=== PATIENT | male | born 1955 | race Caucasian/White ===

== ENCOUNTER 2019-01-29 08:57 | Emergency (ER) | payer OTHER ==
--- OUTSIDE RECORDS SUMMARY | 2019-01-29 08:59 | XMS REPORT ---
:1955 [facility] Address [address] [place] [address] Dr. Saba [address] [place] [id number] Care Team Providers Name Role Phone Unavailable Unavailable Unavailable Problems This patient has no known problems. Allergies, Adverse Reactions, Alerts This patient has no known allergies or adverse reactions. Medications This patient has no known medications.
[2019-01-29 09:45] LABS: Absolute Lymphocytes (CBC) 1.5 K/uL (0.7-4.9); Basophils % 0.4 % (0-1.3); Eosinophils % 2.5 % (0-4.4); Hematocrit 40.3 % (39.6-49.0); Lymphocytes % 24.2 % (15.3-44.8); MPV 8.7 fL (7.6-11.3); Monocytes % 7.6 % (3.3-12.3); RBC Red Blood Cell Count 4.68 M/uL (4.33-5.43)
[2019-01-29] MEDS ORDERED: NA CHLORIDE 0.9% 1,000 ML ONE (09:51)
[2019-01-29 09:53] LABS: Protime INR 0.89
[2019-01-29 10:06] LABS: Albumin 3.8 g/dL (3.4-5.0); Bilirubin Direct 0.2 mg/dL (0-0.2); Bilirubin Total 0.6 mg/dL (0.2-1.0); Potassium 3.8 mmol/L (3.5-5.1); Protein, Total 6.9 g/dL (6.4-8.2)
--- NOTE | 2019-01-29 10:40 | RAD REPORT ---
EXAM DESCRIPTION: CTAbdomen Pelvis W Contrast - 01/29/2019 10:25 am CLINICAL HISTORY: Abdominal pain. HEMATURIA COMPARISON: <Comparisons> TECHNIQUE: Biphasic CT imaging of the abdomen and pelvis was performed with 100 ml non-ionic IV cont rast. All CT scans are performed using dose optimization technique as appropriate and may include automated exposure control or mA/KV adjustment according to patient size. FINDINGS: The lung bases are clear. Mild diffuse fatty liver is present. No focal mass or biliary dilatation seen. The spleen, adrenal gl ands and pancreas are within normal limits. Cyst is present in the cortex of right kidney measuring 2 3 mm. No aggressive renal mass or hydronephrosis. No bowel obstruction, free air, free fluid or abscess. The appendix is normal. No evidence of signi ficant lymphadenopathy. No suspicious bony findings. Poorly defined mass measuring 22 mm is seen along the posterior aspect o f the urinary bladder. Small right inguinal hernia. 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 Direct visualization with cystoscopy is recommended.
[2019-01-29 10:44] LABS: Urine Blood 3+ (NEG); Urine Glucose NEGATIVE (NEG); Urine Protein 3+ (NEG); Urine Specific Gravity 1.015 (1.005-1.030)
[2019-01-29 10:59] LABS: Urine Bacteria NONE SEEN /HPF (NONE SEEN); Urine Culture Reflex Order NOT NEEDED; Urine RBC >50 /HPF (NONE SEEN)
--- NOTE | 2019-01-29 11:33 | EDPHYS ---
Physician Documentation [facility] Name: Nesha Youssef Age: 63 yrs Sex: Male : 1955 Arrival Date: 01/29/2019 Time: 09:00 Bed 19 Private MD: ED Physician Chuck Doe HPI: 01/29 10:31 This 63 yrs old Male presents to ER via Ambulatory with complaints of Urinary pm1 Problem - blood in urine. 10:31 The patient presents with urinary symptoms, hematuria. Onset: The symptoms/episode pm1 began/occurred last night. Modifying factors: The symptoms are alleviated by nothing, the symptoms are aggravated by nothing. Associated signs and symptoms: Pertinent positives: hematuria, Pertinent negatives: abdominal pain, constipation, diarrhea, dysuria, fever, nausea, vomiting. The patient has experienced similar episodes in the past, a few times. Historical: - Allergies: 09:17 NKA; iw - Home Meds: 09:28 lisinopril-hydrochlorothiazide 10-12.5 mg oral tab 1 tab once daily [Active]; Uribel iw 118-10-40.8-36 mg oral cap daily [Active]; finasteride 5 mg oral tab 1 tab once daily [Active]; tamsulosin 0.4 mg oral cp24 1 cap once daily [Active]; omeprazole 40 mg Oral cpDR 1 cap once daily [Active]; Metamucil oral powd [Active]; aspirin 81 mg Oral TbEC 1 tab once daily [Active]; biotin oral oral daily [Active]; nitroglycerin 0.4 mg SL subl 1 tab every 5 minutes [Active]; Plavix 75 mg Oral tab 1 tab once daily [Active]; atorvastatin 40 mg oral tab 1 tab once daily [Active]; metoprolol succinate 25 mg oral Tb24 1 tab once daily [Active]; 11:01 amitriptyline 10 mg Oral tab 1 tab daily [Active]; Elmiron 100 mg Oral cap twice a day tr5 [Active]; finasteride 5 mg Oral tab 1 tab once daily [Active]; lisinopril 10 mg Oral tab 1 tab once daily [Active]; omeprazole 40 mg Oral cpDR 1 cap once daily [Active]; tamsulosin 0.4 mg Oral cp24 1 cap once daily [Active]; Uribel 118-10-40.8-36 mg Oral cap [Active]; - PMHx: 09:28 enlarged prostate; Hypertension; iw - PSHx: 09:28 None; iw - Immunization history:: Adult Immunizations up to date. - Social history:: Smoking status: Patient/guardian denies using tobacco. - Ebola Screening: : Patient negative for fever greater than or equal to 101.5 degrees Fahrenheit, and additional compatible Ebola Virus Disease symptoms Patient denies exposure to infectious person Patient denies travel to an Ebola-affected area in the 21 days before illness onset No symptoms or risks identified at this time. ROS: 10:31 Constitutional: Negative for fever, chills, and weight loss, Eyes: Negative for injury, pm1 pain, redness, and discharge, ENT: Negative for injury, pain, and discharge, Neck: Negative for injury, pain, and swelling, Cardiovascular: Negative for chest pain, palpitations, and edema, Respiratory: Negative for shortness of breath, cough, wheezing, and pleuritic chest pain, Abdomen/GI: Negative for abdominal pain, nausea, vomiting, diarrhea, and constipation, Back: Negative for injury and pain. 10:31 MS/Extremity: Negative for injury and deformity, Skin: Negative for injury, rash, and discoloration, Neuro: Negative for headache, weakness, numbness, tingling, and seizure. 10:31 : Positive for hematuria, Negative for flank pain, burning with urination, penile pain, testicular pain Exam: 10:34 Constitutional: This is a well developed, well nourished patient who is awake, alert, pm1 and in no acute distress. Head/Face: Normocephalic, atraumatic. Eyes: Pupils equal round and reactive to light, extra-ocular motions intact. Lids and lashes normal. Conjunctiva and sclera are non-icteric and not injected. Cornea within normal limits. Periorbital areas with no swelling, redness, or edema. ENT: Nares patent. No nasal discharge, no septal abnormalities noted. Tympanic membranes are normal and external auditory canals are clear. Oropharynx with no redness, swelling, or masses, exudates, or evidence of obstruction, uvula midline. Mucous membranes moist. Neck: Trachea midline, no thyromegaly or masses palpated, and no cervical lymphadenopathy. Supple, full range of motion without nuchal rigidity, or vertebral point tenderness. No Meningismus. Chest/axilla: Normal chest wall appearance and motion. Nontender with no deformity. No lesions are appreciated. Cardiovascular: Regular rate and rhythm with a normal S1 and S2. No gallops, murmurs, or rubs. Normal PMI, no JVD. No pulse deficits. Respiratory: Lungs have equal breath sounds bilaterally, clear to auscultation and percussion. No rales, rhonchi or wheezes noted. No increased work of breathing, no retractions or nasal flaring. Abdomen/GI: Soft, non-tender, with normal bowel sounds. No distension or tympany. No guarding or rebound. No evidence of tenderness throughout. Back: No spinal tenderness. No costovertebral tenderness. Full range of motion. Skin: Warm, dry with normal turgor. Normal color with no rashes, no lesions, and no evidence of cellulitis. MS/ Extremity: Pulses equal, no cyanosis. Neurovascular intact. Full, normal range of motion. 10:34 Neuro: Orientation: is normal, Motor: is normal, moves all fours, Sensation: is normal, no obvious gross deficits. Vital Signs: 09:17 BP 138 / 89; Pulse 86; Resp 16; Pulse Ox 100% on R/A; iw 10:00 BP 128 / 70; Pulse 80; Resp 19; Pulse Ox 98% on R/A; tr5 MDM: 09:15 Patient medically screened. pm1 11:29 Data reviewed: vital signs. Data interpreted: Pulse oximetry: on room air is 98 %. pm1 Interpretation: normal. Counseling: I had a detailed discussion with the patient and/or guardian regarding: the historical points, exam findings, and any diagnostic results supporting the discharge/admit diagnosis, lab results, radiology results, the need for outpatient follow up, for definitive care, a urologist, Needs evaluation with his urologist by next week for bladder mass. 01/29 09:15 Order name: Basic Metabolic Panel; Complete Time: 10:26 pm1 01/29 09:15 Order name: CBC with Diff; Complete Time: 10: pm1 01/29 09:15 Order name: Creatinine for Radiology; Complete Time: 10: pm1 01/29 09:15 Order name: Hepatic Function; Complete Time: 10: pm1 07/13 09:15 Order name: Lipase; Complete Time: 10:26 pm1 01/29 09:15 Order name: PT-INR; Complete Time: 10:26 pm1 01/29 09:15 Order name: IV Saline Lock; Complete Time: 09:33 pm01/29 09:15 Order name: Labs collected and sent; Complete Time: 09:33 pm1 01/29 09:15 Order name: CT Abd/Pelvis - IV Contrast Only; Complete Time: 11:15 pm01/29 09:15 Order name: Urine Dipstick-Ancillary (obtain specimen); Complete Time: 10:49 pm1 01/29 09:15 Order name: Urine Microscopic Only; Complete Time: 11:15 pm01/29 10:37 Order name: Urine Dipstick--Ancillary (enter results); Complete Time: 11:15 eb Administered Medications: 09:40 Drug: NS 0.9% 1000 ml Route: IV; Rate: 1000 ml; Site: right antecubital; tr5 10:49 Follow up: Response: No adverse reaction; IV Status: Completed infusion tr5 Disposition: 15:13 Co-signature as Attending Physician, Chuck Doe MD. rn Disposition: 01/29/19 11:32 Discharged to Home. Impression: Bladder mass, Hematuria. - Condition is Stable. - Discharge Instructions: Hematuria, Adult. - Medication Reconciliation Form, Thank You Letter, Antibiotic Education, Prescription Opioid Use form. - Follow up: Emergency Department; When: As needed; Reason: Worsening of condition. Follow up: Private Physician; When: 2 - 3 days; Reason: Recheck today's complaints, Continuance of care, Re-evaluation by your physician. - Problem is new. - Symptoms have improved. Signatures: Dispatcher [employer] Mary Beth Shni RN RN iw Nieto, Roman, MD MD rn Calderon, Audri, RN RN aa5 Marko Velázquez, CARBIDE TOOL DIE MAKER CARBIDE TOOL DIE MAKER pm1 Cortez Barker RN RN tr5 Corrections: (The following items were deleted from the chart) 12:14 11:33 01/29/2019 11:32 Discharged to Home. Impression: Bladder massHematuria. Condition aa5 is Stable. Forms are Medication Reconciliation Form, Thank You Letter, Antibiotic Education, Prescription Opioid Use. Follow up: Emergency Department; When: As needed; Reason: Worsening of condition. Follow up: Private Physician; When: 2 - 3 days; Reason: Recheck today's complaints, Continuance of care, Re-evaluation by your physician. Problem is new. Symptoms have improved. pm1
--- NOTE | 2019-01-29 11:33 | ER ---
Nurse's Notes [facility] Name: Nesha Youssef Age: 63 yrs Sex: Male : 1955 Arrival Date: 01/29/2019 Time: 09:00 Bed 19 Private MD: Diagnosis: Hematuria;Bladder mass Presentation: 01/29 09:14 Presenting complaint: Patient states: got up to urinate 4-5 times last night, had blood iw with clots in urine, denies urinary retention, denies painful urination, denies n/v, hx of interstitial prostatitis. Transition of care: patient was not received from another setting of care. Onset of symptoms was January 29, 2019. Risk Assessment: Do you want to hurt yourself or someone else? Patient reports no desire to harm self or others. Initial Sepsis Screen: Does the patient meet any 2 criteria? No. Patient's initial sepsis screen is negative. Does the patient have a suspected source of infection? No. Patient's initial sepsis screen is negative. Care prior to arrival: None. 09:14 Method Of Arrival: Ambulatory iw 09:14 Acuity: MARIE 3 iw Historical: - Allergies: 09:17 NKA; iw - Home Meds: 09:28 lisinopril-hydrochlorothiazide 10-12.5 mg oral tab 1 tab once daily [Active]; Uribel iw 118-10-40.8-36 mg oral cap daily [Active]; finasteride 5 mg oral tab 1 tab once daily [Active]; tamsulosin 0.4 mg oral cp24 1 cap once daily [Active]; omeprazole 40 mg Oral cpDR 1 cap once daily [Active]; Metamucil oral powd [Active]; aspirin 81 mg Oral TbEC 1 tab once daily [Active]; biotin oral oral daily [Active]; nitroglycerin 0.4 mg SL subl 1 tab every 5 minutes [Active]; Plavix 75 mg Oral tab 1 tab once daily [Active]; atorvastatin 40 mg oral tab 1 tab once daily [Active]; metoprolol succinate 25 mg oral Tb24 1 tab once daily [Active]; 11:01 amitriptyline 10 mg Oral tab 1 tab daily [Active]; Elmiron 100 mg Oral cap twice a day tr5 [Active]; finasteride 5 mg Oral tab 1 tab once daily [Active]; lisinopril 10 mg Oral tab 1 tab once daily [Active]; omeprazole 40 mg Oral cpDR 1 cap once daily [Active]; tamsulosin 0.4 mg Oral cp24 1 cap once daily [Active]; Uribel 118-10-40.8-36 mg Oral cap [Active]; - PMHx: 09:28 enlarged prostate; Hypertension; iw - PSHx: 09:28 None; iw - Immunization history:: Adult Immunizations up to date. - Social history:: Smoking status: Patient/guardian denies using tobacco. - Ebola Screening: : Patient negative for fever greater than or equal to 101.5 degrees Fahrenheit, and additional compatible Ebola Virus Disease symptoms Patient denies exposure to infectious person Patient denies travel to an Ebola-affected area in the 21 days before illness onset No symptoms or risks identified at this time. Screenin:01 Abuse screen: Denies threats or abuse. Nutritional screening: No deficits noted. tr5 Tuberculosis screening: No symptoms or risk factors identified. Fall Risk No fall in past 12 months (0 pts). No secondary diagnosis (0 pts). IV access (20 points). Ambulatory Aid- None/Bed Rest/Nurse Assist (0 pts). Gait- Normal/Bed Rest/Wheelchair (0 pts) Mental Status- Oriented to own ability (0 pts). Total Damon Fall Scale indicates No Risk (0-24 pts). Assessment: 09:41 General: Appears in no apparent distress. Behavior is calm, cooperative, appropriate tr5 for age. Pain: Denies pain. Neuro: Level of Consciousness is awake, alert, obeys commands, Oriented to person, place, time, Endocrinology Physician are equal bilaterally Moves all extremities. Cardiovascular: Heart tones present Bruits absent Capillary refill < 3 seconds Pulses are all present. Edema is absent. Respiratory: Airway is patent Trachea midline Breath sounds are clear bilaterally. GI: Abdomen is flat, non-distended, Bowel sounds present X 4 quads. Abd is soft and non tender. : Reports Blood and clots in urine. EENT: No signs and/or symptoms were reported regarding the EENT system. Derm: Skin is intact, Skin is dry, Skin is pink, warm \\T\\ dry. Musculoskeletal: Capillary refill < 3 seconds, Range of motion: intact in all extremities. 12:10 Reassessment: Patient is alert, oriented x 3, equal unlabored respirations, skin aa5 warm/dry/pink. Vital Signs: 09:17 BP 138 / 89; Pulse 86; Resp 16; Pulse Ox 100% on R/A; iw 10:00 BP 128 / 70; Pulse 80; Resp 19; Pulse Ox 98% on R/A; tr5 ED Course: 09:00 Patient arrived in ED. as 09:06 Cortez Barker, RN is Primary Nurse. tr5 09:07 Marko Velázquez NP is PHCP. pm1 09:07 Chuck Doe MD is Attending Physician. pm1 09:17 Triage completed. iw 09:19 Radiology exam delayed due to lab results not completed at this time. (BUN/Creatinine). mw3 09:38 Initial lab(s) drawn, by me, sent to lab. Inserted saline lock: 20 gauge in right 5 antecubital area, using aseptic technique. Blood collected. 09:38 Patient has correct armband on for positive identification. Bed in low position. Call [facility] light in reach. Side rails up X 1. Warm blanket given. Pulse ox on. NIBP on. 09:54 PT-INR Sent. mh5 09:54 Basic Metabolic Panel Sent. mh5 09:54 CBC with Diff Sent. mh5 09:54 Creatinine for Radiology Sent. mh5 09:54 Hepatic Function Sent. mh5 09:54 Lipase Sent. mh5 10:[address] tr5 10:25 CT completed. Patient tolerated procedure well. Patient moved back from CT. bq 10:25 CT Abd/Pelvis - IV Contrast Only In Process Unspecified. EDMS 11:02 Arm band placed on left wrist. tr5 12:10 No provider procedures requiring assistance completed. IV discontinued, intact, aa5 bleeding controlled, No redness/swelling at site. Pressure dressing applied. Administered Medications: 09:40 Drug: NS 0.9% 1000 ml Route: IV; Rate: 1000 ml; Site: right antecubital; tr5 10:49 Follow up: Response: No adverse reaction; IV Status: Completed infusion tr5 Outcome: 11:32 Discharge ordered by . pm1 12:10 Discharged to home ambulatory, Pt states "I will see the urologist on Thursday for sure" aa5 12:10 Condition: stable 12:10 Discharge instructions given to patient, Instructed on discharge instructions, follow up and referral plans. Demonstrated understanding of instructions, follow-up care. 12:14 Patient left the ED. aa5 Signatures: Dispatcher [employer] Ora Tay Amelia as Williams, Irene, RN RN iw Jessica Cruz RN RN aa5 Marko Velázquez NP COPPER TAPPER 1 Herlinda Gamboa 5 Jessica Roman mw3 Cortez Barker RN RN tr5
[2019-01-29 12:23] VITALS: BP 128/70; O2SAT 98
== END 2019-01-29 12:14 | disposition home or self-care (01) ==
LOC: ER 08:57
DX: N32.9 Bladder disorder, unspecified (principal); I10 Essential (primary) hypertension; N40.0 Benign prostatic hyperplasia without lower urinary tract symptoms; Z79.01 Long term (current) use of anticoagulants; Z79.82 Long term (current) use of aspirin
CPT/HCPCS: 36415; 74177; 80048; 80076; 81003; 81015; 83690; 85025; 85610; 96360; 99284; J7030; Q9967

== ENCOUNTER 2019-03-29 22:19 | Emergency (ER) | payer OTHER ==
--- OUTSIDE RECORDS SUMMARY | 2019-03-29 22:22 | XMS REPORT | Summary of Care ---
:1955 Author Organization [facility] - Health Address [address] [place] [id number] Care Team Providers Name Role Phone Alesia Rowell Primary Care Provider Encounter Details Date Type Department Care Team Description 03/18/2019 Orders Only [facility] Doctor Unassigned, No [address] [facility] [place] [address] [address] [facility] [place] [phone] Allergies Active Allergy Reactions Severity Noted Date Comments Metoprolol Unknown - See comments 11/12/2018 Feeling floating documented as of this encounter (statuses as of 03/22/2019) Medications Medication Sig Dispensed Refills Start Date End Date Status finasteride 5 mg tablet Take 5 mg by 0 Active mouth at bedtime. tamsulosin (FLOMAX) 0.4 Take 0.4 mg by 0 Active mg 24 hr capsule mouth at bedtime. psyllium-sucrose Take 1 Packet by 0 Active (METAMUCIL, SUGAR,) mouth daily. powder nitroglycerin Place 1 tablet 25 tablet 1 04/21/2017 Active (NITROSTAT) 0.4 mg under the tongue sublingual tablet every 5 (five) minutes as needed for Chest pain. biotin 5,000 mcg TbDL Take by mouth 0 Active daily. aspirin 81 mg EC tablet Take 1 tablet by 90 tablet 4 05/06/2018 Active mouth daily. lisinopril-hydrochlorot Take 1 tablet by 0 Active hiazide 10-12.5 mg per mouth daily. tablet atorvastatin 80 mg Take 1 tablet by 90 tablet 2 12/06/2018 Active tablet mouth at bedtime. clopidogrel 75 mg Take 1 tablet by 90 tablet 1 12/09/2018 Active tablet mouth daily. documented as of this encounter (statuses as of 03/22/2019) Active Problems Problem Noted Date Chest pain 03/11/2017 documented as of this encounter (statuses as of 03/22/2019) Social History Tobacco Use Types Packs/Day Years Used Date Former Smoker Smokeless Tobacco: Never Used Alcohol Use Drinks/Week oz/Week Comments Yes 7 Glasses of wine 4.2 Sex Assigned at Date Recorded Not on file Job Start Date Occupation Industry Not on file Not on file Not on file Travel History Travel Start Travel End No recent travel history available. documented as of this encounter Last Filed Vital Signs Not on filedocumented in this encounter Plan of Treatment Date Type Specialty Care Team Description 07/07/2019 Office Visit Dermatology Charles Vincent MD [address] [facility] [id number] [place] [address] [phone] Health Maintenance Due Date Last Done Comments HEPATITIS C (HCV) SCREEN 1955 DTaP,Tdap,and Td Vaccines (1 - 12/12/1975 Tdap) COLONOSCOPY 2006 Zoster Recombinant Vaccine 2006 (SHINGRIX) (1 of 2) LUNG CANCER SCREEN: Recommended 12/12/2011 for age 55-80 with 30 + pack year history INFLUENZA VACCINE (#1) 2019 PNEUMOCOCCAL 0-64 YEARS COMBINED Aged Out No longer eligible based on SERIES patient's age to complete this topic documented as of this encounter Procedures Procedure Name Priority Date/Time Associated Diagnosis Comments MEDICAL Routine 03/18/2019 12:01 AM CDT RELEASE/CLEARANCE FORMS documented in this encounter Results Not on filedocumented in this encounter Insurance Payer Benefit Plan / Subscriber ID Effective Dates Phone Address Type Group [facility] [id number] 2016-Present HMO HMO documented as of this encounter
--- OUTSIDE RECORDS SUMMARY | 2019-03-29 22:22 | XMS REPORT ---
:1955 Author Organization [facility] Address [address] [place] [address] Care Team Providers Name Role Phone Unavailable Unavailable Unavailable Payers Payer Name Policy Type Policy Number Effective Date Expiration Date Problems This patient has no known problems. Allergies, Adverse Reactions, Alerts Allergy Allergy Status Severity Reaction(s) Onset Inactive Treating Comments Name Type Date Date Clinician No Known DA Active U 2019-02 Allergies -30 00:00:0 0 Medications This patient has no known medications. Results Test Description Test Time Test Comments Text Results Atomic Results Result Comments URINARY 2019-03-28 RUN BLADDER,BIOPSY 18:09:00 DATE: 03/28/19 [facility] - LAB PAGE 1 RUN TIME: 1809 Specimen Inquiry RUN USER: INTERFACE MARTHA ENT: RACHEL ESCALANTE LOC: IRENE U #: [id number] AGE/SX: 63/M ROOM: RE03/25/19REG DR: Anthony Queen MD : 57 BED: DIS: STATUS: [facility] TLOC: SPEC #: [id number] RECD: 03/25/19 STATUS: LUZ RAMAN #: [id number] MACO: 03/25/[address] [facility] [address]: Anthony Queen MD ENTERED: 03/25/19 SP TYPE: URINBLAD OTHR DR: Undefined Provider ORDERED: SURG PATH LVL 4 CODES: G15810 [id number] - UROTHELIUM, NOS NO EVIDENCE OF [id number] L10859 - UROTHELIUM , NOS INFLAMMATION, N [id number] G66426 - UROTHELIUM, NOS GRANULATION TIS U10243 - URINARY BLADDER [id number] [id number] - URINARY BLADDER BIOPSY, NOS [place]: [place] [id number] [facility] [address] [place] [address] Undefined Provider PROCEDURES: SURG PATH LVL 4 (03/25/19) TISSUES: A. URINARY BLADDER, NOS - BLADDER BX CLINICAL HISTORY HUNNER'S ULCER CPT CODES CPT CODE(S): 36936 , , , , , , FINAL DIAGNOSIS Urinary bladder, biopsy: - MINUTE PORTION OF INTACT UROTHELIUM WITH CHRONIC AND ACUTE INFLAMMATORY CELLS AND ASSOCIATED GRANULATION TISSUE - NEGATIVE FOR MALIGNANCY GROSS DESCRIPTION Bladder biopsy. Received are two guan tissue fragments (less than 2 mm each), filtered in a tea bag and submitted as A1. /tc/yulissa CONTINUED ON NEXT PAGE RUN DATE: 03/28/19 [facility] - LAB PAGE 2 RUN TIME: 1810 Specimen Inquiry RUN USER: INTERFACE SPEC #: [id number] PATIENT: RACHEL ESCALANTENT # [id number] (Continued) ------- MICROSCOPIC DESCRIPTION Bladder biopsy. A fragment of granulation tissue demonstrates vascular proliferation, chronic and acute inflammatory cells, and a fibroblastic response. A separate fragment of denuded bladder wall demonstrates a minute portion of surface urothelium involved by chronic and acute inflammatory cells. There is no evidence of atypia or malignancy in the intact urothelium. /cm Signed SIGNATURE ON FILE VelasquezMónica 03/28/19 1809 END OF REPORT
--- OUTSIDE RECORDS SUMMARY | 2019-03-29 22:22 | XMS REPORT | Summary of Care ---
:1955 Author Organization [facility] Address [address] [place] [address] Care Team Providers Name Role Phone Alesia Rowell Primary Care Provider Reason for Visit Reason Comments Follow-up Encounter Details Date Type Department Care Team Description 11/12/2018 Office Visit [facility] Bere Rodriguez MD Coronary artery disease involving [place] coronary artery of [place] heart without angina pectoris (Primary Dx); Cardiology- [address] Essential hypertension; [facility] Hyperlipidemia, unspecified hyperlipidemia type [address] [place] [address] [place], [place] [phone] Allergies Active Allergy Reactions Severity Noted Date Comments Metoprolol Unknown - See comments 11/12/2018 Feeling floating documented as of this encounter (statuses as of 02/20/2019) Medications Medication Sig Dispensed Refills Start End Date Status Date finasteride 5 mg tablet Take 5 mg by 0 Active mouth at bedtime. tamsulosin (FLOMAX) 0.4 Take 0.4 mg 0 Active mg 24 hr capsule by mouth at bedtime. psyllium-sucrose Take 1 0 Active (METAMUCIL, SUGAR,) Packet by powder mouth daily. nitroglycerin Place 1 25 tablet 1 Active (NITROSTAT) 0.4 mg tablet under 7 sublingual tablet the tongue every 5 (five) minutes as needed for Chest pain. biotin 5,000 mcg TbDL Take by 0 Active mouth daily. aspirin 81 mg EC tablet Take 1 90 tablet 4 Active tablet by 8 mouth daily. pantoprazole 40 mg EC Take 1 90 tablet 2 Active tablet tablet by 8 mouth daily. lisinopril-hydrochloroth Take 1 0 Active iazide 10-12.5 mg per tablet by tablet mouth daily. metoprolol succinate XL Take 1 90 tablet 2 11/13/19 Discontinued 25 mg 24 hr tablet tablet by 8 19 mouth daily. hydroCHLOROthiazide 12.5 Take 1 90 capsule 1 11/13/19 Discontinued mg capsule capsule by 8 19 mouth daily. clopidogrel 75 mg tablet Take 1 90 tablet 1 12/10/19 Discontinued tablet by 8 19 mouth daily. atorvastatin 40 mg Take 1 90 tablet 1 12/04/19 Discontinued tablet tablet by 8 19 mouth at bedtime. documented as of this encounter (statuses as of 02/20/2019) Active Problems Problem Noted Date Chest pain 03/11/2017 documented as of this encounter (statuses as of 02/20/2019) Social History Tobacco Use Types Packs/Day Years [...] of this encounter Last Filed Vital Signs Vital Sign Reading Time Taken Comments Blood Pressure 106/71 11/12/2018 2:15 PM CDT Pulse 80 11/12/2018 2:15 PM CDT Temperature - - Respiratory Rate 18 11/12/2018 2:15 PM CDT Oxygen Saturation 95% 11/12/2018 2:15 PM CDT Inhaled Oxygen Concentration - - Weight 72.9 kg (160 lb 12.8 oz) 11/12/2018 2:15 PM CDT Height 157.5 cm (5' 2") 11/12/2018 2:15 PM CDT Body Mass Index 29.41 11/12/2018 2:15 PM CDT documented in this encounter Patient Instructions Patient InstructionsBere Rodriguez MD - 11/12/2018 2:00 PM CDTSend us lipid report documented in this encounter Progress Notes Bere Rodriguez MD - 11/12/2018 2:00 PM CDT CARDIOLOGY CLINIC NOTE 11/12/2018 Reason for Referral/Presenting Complaint: CAD PCP: Alesia Rowell History of Present Illness: Nesha oYussef is a 62 years old male with history of HTN and CAD. He was here for evaluation of chestpain. Treadmill stress test was abnormal. LHC showed distal RCA stenosis--treated with PCI PROMISE. Doing well. He is on ASA/plavix. No bleeding. BP is normal. Since last time he has stopped metoprolol dueto feeling "floating" sometimes. Review of Systems: General: (-) fever, (-) chills, (-) weight change, (-) dizziness, (-) fatigue Skin: (-) rash HEENT: (-) headache, (-) change in vision Neck: (-) difficulty swallowing Heme: negative Resp: (-) cough, (-) dyspnea on exertion Cardio: (-) chest pain, (-) palpitations, (-) syncope GI: (-) vomiting, (-) diarrhea : negative Endo: (-) diabetes, (-) thyroid disease Neuro: (-) numbness, (-) tingling, (-) weakness Back: (-) pain MASSIEL: (-) muscle pain, (-) claudication Psych: (-) anxiety, (-) depression Past Medical History: Past Medical History: Diagnosis Date BPH (benign prostatic hyperplasia) Hypertension Prostatitis Current Medications: Current Outpatient Prescriptions Medication Sig Dispense Refill lisinopril-hydrochlorothiazide 10-12.5 mg per tablet Take 1 tablet by mouth daily. atorvastatin 40 mg tablet Take 1 tablet by mouth at bedtime. 90 tablet 1 pantoprazole 40 mg EC tablet Take 1 tablet by mouth daily. 90 tablet 2 clopidogrel 75 mg tablet Take 1 tablet by mouth daily. 90 tablet 1 aspirin 81 mg EC tablet Take 1 tablet by mouth daily. 90 tablet 4 biotin 5,000 mcg TbDL Take by mouth daily. nitroglycerin (NITROSTAT) 0.[address] 1 tablet under the tongue every 5 (five) minutes as needed for Chest pain. 25 tablet 1 psyllium-sucrose (METAMUCIL, SUGAR,) powder Take 1 Packet by mouth daily. finasteride 5 mg tablet Take 5 mg by mouth at bedtime. tamsulosin (FLOMAX) 0.4 mg 24 hr capsule Take 0.4 mg by mouth at bedtime. No current facility-administered medications for this visit. Social History: Social History Social History Marital status: Spouse name: N/A Number of children: N/A Years of education: N/A Social History Main Topics Smoking status: Former Smoker Smokeless tobacco: Never Used Alcohol use 4.2 oz/week 7 Glasses of wine per week Drug use: No Sexual activity: Not on file Other Topics Concern Not on file Social History Narrative No narrative on file Family History Family History Problem Relation Age of Onset Non-contributory Mother Physical Examination: BP 106/71 (BP Location: Left arm, Patient Position: Sitting, BP CUFF SIZE: Adult Medium) | Pulse 80 | Resp 18 | Ht 5' 2" (1.575 m) | Wt 160 lb 12.8 oz ( 72.9 kg) | SpO2 95% | BMI 29.41 kg/m Constitutional: alert and oriented x 3 (person, place and date/time); no apparent distress ENT: normocephalic atraumatic, supple, no lymphadenopathy, no bruits, no JVD Lungs: clear to auscultation bilaterally Cardiovascular: S1, S2 normal, regular; no murmurs, rubs or gallops GI: soft; non-tender; non-distended; normoactive bowel sounds : not examined Musculoskeletal: Extremities: no clubbing, cyanosis, or edema Skin: no rashes Neuro: no focal deficits Cardiovascular testing: EKG: Normal sinus rhythm. Normal EKG. 11/12/2018 -- reviewed by me --- Normal sinus rhythm. Normal EKG. Treadmill stress test--2016 Positive for ischemia ECHO--Normal LVEF [facility]--02/2017--RCA PCI with PROMISE [facility]--05/2016 ER visit--N/V/D with abdominal pain CT A/P--Normal 04/2017--LDL 73, TC 144, TG 57 06/2018--LDL 101, TC 173, TG 62, HDL 60 Assessment/Plan: ICD-10-CM ICD-9-CM 1. Coronary artery disease involving [place] coronary artery of [place] heart without angina pectoris I25.10 414.01 2. Essential hypertension I10 401.9 3. Hyperlipidemia, unspecified hyperlipidemia type E78.5 272.4 CAD--Distal RCA disease treated with PCI PROMISE. Continue ASA/plavix. Off metoprolol due to fatigue andother side effect. On lipitor. Goal LDL < 70. HTN--Well controlled. It is relatively low. No symptoms. On lisinopril/HCTZ to prevent fluid retention he had before. HLD--LDL 73. Advised to send us the lipid report. If LDL > 70 will increase lipitor to 80 mg. RTC 12 months Addendum---02/20/2019---Moderate cardiac risk. No further testing needed. OK to hold plavix. Restart it post op once hemostasis achieved. Bere Rodriguez MD, FACC, FACP, CARRILLO Non Destructive Testing Inspector, Division of Cardiology [facility] documented in this encounter Plan of Treatment Date Type Specialty Care Team Description 07/07/2019 Office Visit Dermatology Charles Vincent MD [address] [place] [address] [phone] Name Type Priority Associated Diagnoses Order Schedule EKG-12 LEAD ROUTINE HEART STATION Routine Coronary artery Ordered: 2018 disease involving [place] coronary artery of [place] heart without angina pectoris Health Maintenance Due Date Last Done Comments HEPATITIS C (HCV) SCREEN 1955 DTaP,Tdap,and Td Vaccines (1 - 12/12/1975 Tdap) COLONOSCOPY 2006 Zoster Recombinant Vaccine 2006 (SHINGRIX) (1 of 2) LUNG CANCER SCREEN: Recommended 12/12/2011 for age 55-80 with 30 + pack year history INFLUENZA VACCINE 03/20/2019 PNEUMOCOCCAL 0-64 YEARS COMBINED Aged Out No longer eligible based on SERIES patient's age to complete this topic documented as of this encounter Procedures Procedure Name Priority Date/Time Associated Diagnosis Comments EKG-12 LEAD Routine 11/12/2018 1:21 PM CDT documented in this encounter Results Not on filedocumented in this encounter Visit Diagnoses Diagnosis Coronary artery disease involving [place] coronary artery of [place] heart without angina pectoris - Primary Essential hypertension Unspecified essential hypertension Hyperlipidemia, unspecified hyperlipidemia type documented in this encounter Insurance Payer Benefit Plan / Subscriber ID Effective Dates Phone Address Type Group [facility] [id number] 2016-Present O HMO (Home) [place] [address] documented as of this encounter
--- OUTSIDE RECORDS SUMMARY | 2019-03-29 22:22 | XMS REPORT | Summary of Care ---
:1955 Author Organization [facility] Address [address] [place] [address] Care Team Providers Name Role Phone Alesia Rowell Primary Care Provider Reason for Visit Reason Comments Forms Cardiac Clearance Encounter Details Date Type Department Care Team Description 02/18/2019 Telephone [facility] Bere Rodriguez MD Forms (Cardiac Cardiology- [address] Clearance) [address] [place] [phone] Allergies Active Allergy Reactions Severity Noted Date Comments Metoprolol Unknown - See comments 11/12/2018 Feeling floating documented as of this encounter (statuses as of 02/22/2019) Medications Medication Sig Dispensed Refills Start Date [...] 90 tablet 4 05/06/2018 Active mouth daily. pantoprazole 40 mg EC Take 1 tablet by 90 tablet 2 06/28/2018 Active tablet mouth daily. lisinopril-hydrochlorot Take 1 tablet by 0 Active hiazide 10-12.5 mg per mouth daily. tablet atorvastatin 80 mg Take 1 tablet by 90 tablet 2 12/06/2018 Active tablet mouth at bedtime. clopidogrel 75 mg Take 1 tablet by 90 tablet 1 12/09/2018 Active tablet mouth daily. documented as of this encounter (statuses as of 02/22/2019) Active Problems Problem Noted Date Chest pain 03/11/2017 documented as of this encounter (statuses as of 02/22/2019) Social History Tobacco Use Types Packs/Day Years [...] Dermatology Charles Vincent MD [address] [place], [place] [id number] Health Maintenance Due Date Last Done Comments [...] this topic documented as of this encounter Results Not on filedocumented in this encounter Insurance Payer Benefit Plan / Subscriber ID Effective Dates Phone Address Type Group [facility] [id number] 2016-Present [facility] documented as of this encounter
--- OUTSIDE RECORDS SUMMARY | 2019-03-29 22:22 | XMS REPORT | Summary of Care ---
:1955 Author Organization [facility] Address [address] [place] [address] Care Team Providers Name Role Phone Alesia Rowell Primary Care Provider Reason for Visit Reason Comments Refill Request Encounter Details Date Type Department Care Team Description 03/22/2019 Refill [facility] Cardiology- Bere Rodriguez MD Refill Request [address] [facility], [address] [place] [address] [place] [phone] Allergies Active Allergy Reactions Severity Noted Date Comments Metoprolol Unknown - See comments 11/12/2018 Feeling floating documented as of this encounter (statuses as of 03/22/2019) Medications Medication Sig Dispensed Refills Start Date End Date Status finasteride 5 mg Take 5 mg by 0 Active tablet mouth at bedtime. tamsulosin (FLOMAX) Take 0.4 mg 0 Active 0.4 mg 24 hr capsule by mouth at bedtime. psyllium-sucrose Take 1 Packet 0 Active (METAMUCIL, SUGAR,) by mouth powder daily. nitroglycerin Place 1 25 tablet 1 04/21/2017 Active (NITROSTAT) 0.4 mg tablet under sublingual tablet the tongue every 5 (five) minutes as needed for Chest pain. biotin 5,000 mcg Take by 0 Active TbDL mouth daily. aspirin 81 mg EC Take 1 tablet 90 tablet 4 05/06/2018 Active tablet by mouth daily. lisinopril-hydrochlo Take 1 tablet 0 Active rothiazide 10-12.5 by mouth mg per tablet daily. atorvastatin 80 mg Take 1 tablet 90 tablet 2 12/06/2018 Active tablet by mouth at bedtime. clopidogrel 75 mg Take 1 tablet 90 tablet 1 12/09/2018 Active tablet by mouth daily. pantoprazole 40 mg Take 1 tablet 90 tablet 1 03/22/2019 Active EC tablet by mouth daily. pantoprazole 40 mg Take 1 tablet 90 tablet 2 06/28/2018 03/22/2019 Discontinued EC tablet by mouth daily. documented as of this encounter [...] Office Visit Dermatology Charles Vincent MD [address] [facility] [address] [place], [place] [id number] Health Maintenance Due Date Last Done Comments [...] ID Effective Dates Phone Address Type Group [facility] [id number] 2016-Present O HMO documented as of this encounter
--- OUTSIDE RECORDS SUMMARY | 2019-03-29 22:22 | XMS REPORT | Summary of Care ---
:1955 Author Organization [facility] Address [address] [place] [address] Care Team Providers Name Role Phone Alesia Rowell Primary Care Provider Encounter Details Date Type Department Care Team Description 02/18/2019 Orders Only [facility] Doctor Unassigned, No [address] [facility] [place] [address] [address] [place] [id number] Allergies Active Allergy Reactions Severity Noted Date Comments Metoprolol Unknown - See comments 11/12/2018 Feeling floating documented as of this encounter (statuses as of 02/21/2019) Medications Medication Sig Dispensed Refills Start Date [...] as of this encounter (statuses as of 02/21/2019) Active Problems Problem Noted Date Chest pain 03/11/2017 documented as of this encounter (statuses as of 02/21/2019) Social History Tobacco Use Types Packs/Day Years [...] Dermatology Charles Vincent MD [id number] [place], [place] [id number] Health Maintenance Due Date Last Done Comments [...] Priority Date/Time Associated Diagnosis Comments MEDICAL Routine 02/18/2019 12:01 AM CDT RELEASE/CLEARANCE FORMS documented in this encounter Results Not on filedocumented in this encounter Insurance Payer Benefit Plan / Subscriber ID Effective Dates Phone Address Type Group [facility] [id number] 2016-Present O HMO documented as of this encounter
[2019-03-29] MEDS ORDERED: ONDANSETRON 4 MG/2 ML VIAL ONE (22:48)
[2019-03-29] MEDS ORDERED: MORPHINE 4 MG/ML SYR ONE (22:48)
[2019-03-29] MEDS ORDERED: NA CHLORIDE 0.9% 1,000 ML ONE (22:57)
[2019-03-29 23:04] LABS: Absolute Lymphocytes (CBC) 1.6 K/uL (0.7-4.9); Basophils % 0.6 % (0-1.3); Hematocrit 35.5 % (39.6-49.0); Lymphocytes % 19.7 % (15.3-44.8); MPV 8.8 fL (7.6-11.3); RBC Red Blood Cell Count 4.15 M/uL (4.33-5.43)
[2019-03-29 23:05] LABS: Protime INR 0.97
[2019-03-29] MEDS ORDERED: LIDOCAINE VISCOUS 2% SOLN 15 ML UDC ONE (23:10)
[2019-03-29 23:20] LABS: ALT/SGPT 23 U/L (12-78); AST/SGOT 12 U/L (15-37); Albumin 3.7 g/dL (3.4-5.0); Alkaline Phosphatase 65 U/L (45-117); BUN Blood Urea Nitrogen 14 mg/dL (7-18); Bicarbonate 26 mmol/L (21-32); Bilirubin Direct 0.2 mg/dL (0-0.2); Bilirubin Total 0.5 mg/dL (0.2-1.0); Glucose Level 115 mg/dL (74-106); NT PRO-BNP 262 pg/mL (<125); Potassium 3.5 mmol/L (3.5-5.1); Protein, Total 6.5 g/dL (6.4-8.2); Sodium Level 139 mmol/L (136-145); Troponin (Emerg Dept Use Only) < 0.02 ng/mL (0.0-0.045)
[2019-03-30] MEDS ORDERED: NA CHLORIDE 0.9% 2,000 ML ONE (00:04)
--- NOTE | 2019-03-30 01:19 | EDPHYS ---
Physician Documentation [facility] Name: Nesha Youssef Age: 63 yrs Sex: Male : 1955 Arrival Date: 03/29/2019 Time: 22:22 Bed 7 Private MD: ED Physician Dillon Ball HPI: 03/29 23:43 This 63 yrs old Male presents to ER via Ambulatory with complaints of PATIENT tw4 SAYS BLEEDING FROM BLADDER. 23:43 The patient presents with urinary symptoms, retention. Onset: The symptoms/episode tw4 began/occurred today. Modifying factors: The symptoms are alleviated by nothing, the symptoms are aggravated by nothing. 03/30 00:16 Associated signs and symptoms: The patient has no apparent associated signs or tw4 symptoms. Severity of symptoms: At their worst the symptoms were moderate. The patient has not experienced similar symptoms in the past. Historical: - Allergies: 03/29 23:03 NKA; rv - Home Meds: 23:03 amitriptyline 10 mg Oral tab 1 tab daily [Active]; aspirin 81 mg Oral TbEC 1 tab once rv daily [Active]; atorvastatin 40 mg Oral tab 1 tab once daily [Active]; biotin Oral daily [Active]; Elmiron 100 mg Oral cap twice a day [Active]; finasteride 5 mg Oral tab 1 tab once daily [Active]; finasteride 5 mg Oral tab 1 tab once daily [Active]; lisinopril 10 mg Oral tab 1 tab once daily [Active]; lisinopril-hydrochlorothiazide 10-12.5 mg Oral tab 1 tab once daily [Active]; Metamucil Oral powd [Active]; metoprolol succinate 25 mg Oral Tb24 1 tab once daily [Active]; nitroglycerin 0.4 mg SL subl 1 tab every 5 minutes [Active]; omeprazole 40 mg Oral cpDR 1 cap once daily [Active]; omeprazole 40 mg Oral cpDR 1 cap once daily [Active]; Plavix 75 mg Oral tab 1 tab once daily [Active]; tamsulosin 0.4 mg Oral cp24 1 cap once daily [Active]; tamsulosin 0.4 mg Oral cp24 1 cap once daily [Active]; Uribel 118-10-40.8-36 mg Oral cap [Active]; Uribel 118-10-40.8-36 mg Oral cap daily [Active]; - PMHx: 23:03 enlarged prostate; Hypertension; rv - PSHx: 23:03 BLADDER SURGERY; rv - Immunization history:: Adult Immunizations up to date. - Social history:: Smoking status: Patient/guardian denies using tobacco. - Ebola Screening: : No symptoms or risks identified at this time. ROS: 03/30 00:16 Constitutional: Negative for fever, chills, and weight loss, Eyes: Negative for injury, tw4 pain, redness, and discharge, Cardiovascular: Negative for chest pain, palpitations, and edema, Respiratory: Negative for shortness of breath, cough, wheezing, and pleuritic chest pain, Abdomen/GI: Negative for abdominal pain, nausea, vomiting, diarrhea, and constipation. MS/Extremity: Negative for injury and deformity, Skin: Negative for injury, rash, and discoloration, Neuro: Negative for headache, weakness, numbness, tingling, and seizure. : Positive for hematuria, difficulty urinating. Exam: 00:16 Constitutional: This is a well developed, well nourished patient who is awake, alert, tw4 and in no acute distress. Head/Face: Normocephalic, atraumatic. Chest/axilla: Normal chest wall appearance and motion. Nontender with no deformity. No lesions are appreciated. Cardiovascular: Regular rate and rhythm with a normal S1 and S2. No gallops, murmurs, or rubs. Normal PMI, no JVD. No pulse deficits. Respiratory: Lungs have equal breath sounds bilaterally, clear to auscultation and percussion. No rales, rhonchi or wheezes noted. No increased work of breathing, no retractions or nasal flaring. Abdomen/GI: Soft, non-tender, with normal bowel sounds. No distension or tympany. No guarding or rebound. No evidence of tenderness throughout. MS/ Extremity: Pulses equal, no cyanosis. Neurovascular intact. Full, normal range of motion. Neuro: Awake and alert, GCS 15, oriented to person, place, time, and situation. Cranial nerves II-XII grossly intact. Motor strength 5/5 in all extremities. Sensory grossly intact. Cerebellar exam normal. Normal gait. Vital Signs: 03/29 23:00 BP 130 / 78; Pulse 60; Resp 18; Temp 97.6; Pulse Ox 98% on R/A; Weight 58.97 kg; Height ea 5 ft. 5 in. (165.10 cm); 03/30 00:00 BP 130 / 78; Pulse 58; Resp 18; Temp 97.6; Pulse Ox 98% on R/A; ea 01:30 BP 117 / 71; Pulse 64; Resp 18; Temp 98; Pulse Ox 98% ; ea 03/29 23:00 Body Mass Index 21.63 (58.97 kg, 165.10 cm) ea MDM: 03/29 22:32 Patient medically screened. 03/30 00:16 Differential diagnosis: nonspecific abdominal pain, appendicitis, UTI, urinary tw4 retention. Data reviewed: vital signs, nurses notes. Data interpreted: Pulse oximetry: Interpretation: normal. Counseling: I had a detailed discussion with the patient and/or guardian regarding: the historical points, exam findings, and any diagnostic results supporting the discharge/admit diagnosis. 03/29 22:31 Order name: Basic Metabolic Panel; Complete Time: 00:00 03/30 00:01 Interpretation: Normal except: GLUC 115. 03/29 22:31 Order name: CBC with Diff; Complete Time: 00:00 03/30 00:01 Interpretation: RBC 4.15; HGB 12.1; HCT 35.5. 03/29 22:31 Order name: LFT's; Complete Time: 00:00 03/29 22:31 Order name: Magnesium; Complete Time: 00:00 03/29 22:31 Order name: NT PRO-BNP; Complete Time: 00:00 03/30 00:00 Interpretation: Within normal limits: NT PRO-BNP 262. 03/29 22:31 Order name: PT-INR; Complete Time: 00:00 03/30 00:02 Interpretation: Within normal limits. 03/29 22:31 Order name: Troponin (emerg Dept Use Only); Complete Time: 00:00 03/29 22:31 Order name: Cardiac monitoring; Complete Time: 22:57 03/29 22:31 Order name: IV Saline Lock; Complete Time: 22:57 03/29 22:31 Order name: Labs collected and sent; Complete Time: 22:57 03/29 22:31 Order name: O2 Per Protocol; Complete Time: 22:57 tw4 03/29 22:31 Order name: O2 Sat Monitoring; Complete Time: 22:57 tw4 03/29 22:31 Order name: Three way - flores cath; Complete Time: 00:13 tw4 03/29 22:31 Order name: Three way flores irrigation; Complete Time: 00:13 tw4 Administered Medications: 03/29 22:56 Drug: morphine 4 mg Route: IVP; Site: right antecubital; rv 22:56 Follow up: Response: RASS: Alert and Calm (0) rv 03/30 00:13 Follow up: Response: No adverse reaction; Marked relief of symptoms; Pain is decreased; rv RASS: Alert and Calm (0) 03/29 22:56 Drug: Zofran 2 mg Route: IVP; Site: right antecubital; rv 03/30 00:13 Follow up: Response: No adverse reaction rv 03/29 23:00 Drug: NS 0.9% 1000 ml Route: IV; Rate: 1 bolus; Site: right antecubital; rv Disposition: 03/30/19 01:17 Discharged to Home. Impression: Hematuria, unspecified. - Condition is Stable. - Discharge Instructions: Hematuria, Adult, Ureteroscopy. - Prescriptions for Tramadol 50 mg Oral Tablet - take 1 tablet by ORAL route every 8 hours as needed; 12 tablet. - Medication Reconciliation Form, Thank You Letter, Antibiotic Education, Prescription Opioid Use form. - Follow up: Private Physician; When: Upon discharge from the Emergency Department; Reason: If symptoms return, Recheck today's complaints, Continuance of care. - Problem is new. - Symptoms have improved. Signatures: Dispatcher [employer] EDCT Indu Aparicio RN RN Dillon Alberto MD MD tw4 Royce Mayorga RN RN rv Corrections: (The following items were deleted from the chart) 03/30 01:46 01:17 03/30/2019 01:17 Discharged to Home. Impression: Hematuria, unspecified. ea Condition is Stable. Forms are Medication Reconciliation Form, Thank You Letter, Antibiotic Education, Prescription Opioid Use. Follow up: Private Physician; When: Upon discharge from the Emergency Department; Reason: If symptoms return, Recheck today's complaints, Continuance of care. Problem is new. Symptoms have improved. tw4
--- NOTE | 2019-03-30 01:19 | ER ---
Nurse's Notes [facility] Name: Nesha Youssef Age: 63 yrs Sex: Male : 1955 Arrival Date: 03/29/2019 Time: 22:22 Bed 7 Private MD: Diagnosis: Hematuria, unspecified Presentation: 03/29 22:59 Presenting complaint: Patient states: I JUST HAD A RECENT SURGERY WITH MY BLADDER. I rv WAS OKAY FOR TWO DAYS AFTER DISCHARGE THEN SUDDENLY IT WAS HARD TO PEE. AND IM BLEEDING. I SHOULD HAVE TAKEN THE IBUPROFEN WITH MY BLOOD THINNERS. Transition of care: patient was not received from another setting of care. Onset of symptoms was March 29, 2019 at 08:00. Risk Assessment: Do you want to hurt yourself or someone else? Patient reports no desire to harm self or others. Initial Sepsis Screen: Does the patient meet any 2 criteria? No. Patient's initial sepsis screen is negative. Does the patient have a suspected source of infection? No. Patient's initial sepsis screen is negative. Care prior to arrival: None. 22:59 Method Of Arrival: Ambulatory rv 22:59 Acuity: MARIE 3 rv Historical: - Allergies: 23:03 NKA; rv - Home Meds: 23:03 amitriptyline 10 mg Oral tab 1 tab daily [Active]; aspirin 81 mg Oral TbEC 1 tab once rv daily [Active]; atorvastatin 40 mg Oral tab 1 tab once daily [Active]; biotin Oral daily [Active]; Elmiron 100 mg Oral cap twice a day [Active]; finasteride 5 mg Oral tab 1 tab once daily [Active]; finasteride 5 mg Oral tab 1 tab once daily [Active]; lisinopril 10 mg Oral tab 1 tab once daily [Active]; lisinopril-hydrochlorothiazide 10-12.5 mg Oral tab 1 tab once daily [Active]; Metamucil Oral powd [Active]; metoprolol succinate 25 mg Oral Tb24 1 tab once daily [Active]; nitroglycerin 0.4 mg SL subl 1 tab every 5 minutes [Active]; omeprazole 40 mg Oral cpDR 1 cap once daily [Active]; omeprazole 40 mg Oral cpDR 1 cap once daily [Active]; Plavix 75 mg Oral tab 1 tab once daily [Active]; tamsulosin 0.4 mg Oral cp24 1 cap once daily [Active]; tamsulosin 0.4 mg Oral cp24 1 cap once daily [Active]; Uribel 118-10-40.8-36 mg Oral cap [Active]; Uribel 118-10-40.8-36 mg Oral cap daily [Active]; - PMHx: 23:03 enlarged prostate; Hypertension; rv - PSHx: 23:03 BLADDER SURGERY; rv - Immunization history:: Adult Immunizations up to date. - Social history:: Smoking status: Patient/guardian denies using tobacco. - Ebola Screening: : No symptoms or risks identified at this time. Screenin:59 Abuse screen: Denies threats or abuse. Denies injuries from another. Nutritional rv screening: No deficits noted. Tuberculosis screening: No symptoms or risk factors identified. Fall Risk None identified. Assessment: 22:57 General: Appears in no apparent distress. uncomfortable, Behavior is calm, cooperative. rv Pain: Complains of pain in BLADDER. Neuro: Level of Consciousness is awake, alert, obeys commands, Oriented to person, place, time, situation. Cardiovascular: Patient's skin is warm and dry. Respiratory: Airway is patent. GI: No signs and/or symptoms were reported involving the gastrointestinal system. : Urine is jesus blood, Reports pain with urination. EENT: No signs and/or symptoms were reported regarding the EENT system. Derm: Skin is intact. Musculoskeletal: No signs and/or symptoms reported regarding the musculoskeletal system. Vital Signs: 23:00 BP 130 / 78; Pulse 60; Resp 18; Temp 97.6; Pulse Ox 98% on R/A; Weight 58.97 kg; Height ea 5 ft. 5 in. (165.10 cm); 03/30 00:00 BP 130 / 78; Pulse 58; Resp 18; Temp 97.6; Pulse Ox 98% on R/A; ea 01:30 BP 117 / 71; Pulse 64; Resp 18; Temp 98; Pulse Ox 98% ; ea 03/29 23:00 Body Mass Index 21.63 (58.97 kg, 165.10 cm) ea ED Course: 03/29 22:22 Patient arrived in ED. cf2 22:31 Royce Mayorga RN is Primary Nurse. rv 22:32 Dillon Ball MD is Attending Physician. tw4 22:57 Inserted saline lock: 20 gauge in right antecubital area, using aseptic technique. rv Blood collected. 23:01 Triage completed. rv 23:01 Arm band placed on right wrist. rv 23:01 Patient has correct armband on for positive identification. Bed in low position. Call rv light in reach. Side rails up X 1. Adult w/ patient. cardiac monitor on. Pulse ox on. NIBP on. 03/30 00:12 3-way catheter inserted, using sterile technique, 18 Fr. Returned bloody urine. rv 00:12 Bladder irrigated via Ordonez with 3L normal saline returned PINK COLORED URINE. rv 01:43 No provider procedures requiring assistance completed. IV discontinued, intact, rv bleeding controlled, No redness/swelling at site. Pressure dressing applied. Administered Medications: 03/29 22:56 Drug: morphine 4 mg Route: IVP; Site: right antecubital; rv 22:56 Follow up: Response: RASS: Alert and Calm (0) rv 03/30 00:13 Follow up: Response: No adverse reaction; Marked relief of symptoms; Pain is decreased; rv RASS: Alert and Calm (0) 03/29 22:56 Drug: Zofran 2 mg Route: IVP; Site: right antecubital; rv 03/30 00:13 Follow up: Response: No adverse reaction rv 03/29 23:00 Drug: NS 0.9% 1000 ml Route: IV; Rate: 1 bolus; Site: right antecubital; rv Outcome: 03/30 01:17 Discharge ordered by . tw4 01:43 Discharged to home ambulatory, with family, with 3 way catheter rv 01:43 Condition: improved 01:43 Discharge instructions given to patient, family, Instructed on discharge instructions, follow up and referral plans. medication usage, bladder irrigation 01:46 Patient left the ED. ea Signatures: Indu Aparicio RN Dillon Tatum ea, MD MD tw4 Royce Mayorga RN RN Deangelo Ruiz 2
[2019-03-30 02:08] VITALS: O2SAT 98
[2019-03-30 02:11] VITALS: BP 117/71; TEMP 98
== END 2019-03-30 01:46 | disposition home or self-care (01) ==
LOC: ER 22:19
DX: R31.9 Hematuria, unspecified (principal); I10 Essential (primary) hypertension; N40.0 Benign prostatic hyperplasia without lower urinary tract symptoms; Z79.01 Long term (current) use of anticoagulants; Z79.82 Long term (current) use of aspirin
CPT/HCPCS: 85025; 80048; 36415; 83735; 85610; 80076; 84484; 83880; 51700; 96375; 96374; 99285; J7030 ×2; J2405

== ENCOUNTER 2019-04-08 08:32 | Emergency (ER) | payer OTHER ==
--- OUTSIDE RECORDS SUMMARY | 2019-04-08 08:35 | XMS REPORT ---
:1955 Author Organization [facility] Address [address] [place] [address] Care Team Providers Name Role Phone Unavailable [...] ENT: RACHEL ESCALANTE LOC: [facility] U #: [id number] AGE/SX: 63/M ROOM: RE03/25/19REG DR: Anthony Queen MD : 57 BED: DIS: STATUS: DEP [facility] [place] TLOC: SPEC #: [id number] RECD: 03/25/19 STATUS: LUZ RAMAN #: [id number] MACO: 03/25/[address]: Anthony Quene MD ENTERED: 03/25/19 SP TYPE: URINBLAD OT DR: Undefined Provider ORDERED: SURG PATH LVL 4 CODES: [id number] - UROTHELIUM, NOS NO EVIDENCE OF [id number] - UROTHELIUM , NOS INFLAMMATION, N [id number] V90458 - UROTHELIUM, NOS GRANULATION TIS P11982 - URINARY BLADDER [id number] - URINARY BLADDER BIOPSY, NOS [place]: [place] [id number] [facility] [address] [place] [address] Undefined Provider PROCEDURES: SURG PATH LVL 4 (03/25/19) TISSUES: A. URINARY BLADDER, NOS - BLADDER BX CLINICAL HISTORY [facility] CPT CODES CPT CODE(S): 38518 , , , , , , FINAL [...] SPEC #: [id number] PATIENT: RACHEL ESCALANTENT # [id number] (Continued) ------- MICROSCOPIC DESCRIPTION Bladder biopsy. A [...]
--- NOTE | 2019-04-08 11:12 | EDPHYS ---
Physician Documentation [facility] Name: Nesha Youssef Age: 63 yrs Sex: Male : 1955 Arrival Date: 04/08/2019 Time: 08:34 Bed 15 Private MD: ED Physician Raji You HPI: 04/08 10:21 This 63 yrs old Male presents to ER via Ambulatory with complaints of Needs kdr flores removed. 13:19 The patient presents with a Flores catheter problem, Needs to come out. Onset: The kdr symptoms/episode began/occurred Has been in for eight days and needs to come out. Modifying factors: The symptoms are alleviated by nothing, the symptoms are aggravated by nothing. Associated signs and symptoms: The patient has no apparent associated signs or symptoms. Severity of symptoms: At their worst the symptoms were very mild, in the emergency department the symptoms are unchanged. The patient has not experienced similar symptoms in the past. The patient has been recently seen by a physician: the patient's primary care provider. Historical: - Allergies: 08:50 NKA; hb - Immunization history:: Adult Immunizations up to date. - Social history:: Smoking status: Patient/guardian denies using tobacco. - Ebola Screening: : No symptoms or risks identified at this time. ROS: 13:19 Constitutional: Negative for fever, chills, and weight loss, Eyes: Negative for injury, kdr pain, redness, and discharge, ENT: Negative for injury, pain, and discharge, Neck: Negative for injury, pain, and swelling, Cardiovascular: Negative for chest pain, palpitations, and edema, Respiratory: Negative for shortness of breath, cough, wheezing, and pleuritic chest pain, Abdomen/GI: Negative for abdominal pain, nausea, vomiting, diarrhea, and constipation, Back: Negative for injury and pain, MS/Extremity: Negative for injury and deformity, Skin: Negative for injury, rash, and discoloration, Neuro: Negative for headache, weakness, numbness, tingling, and seizure activity. Psych: Negative for depression, anxiety, suicide ideation, homicidal ideation, and hallucinations, Allergy/Immunology: Negative for hives, rash, and allergies, Endocrine: Negative for neck swelling, polydipsia, polyuria, polyphagia, and marked weight changes, Hematologic/Lymphatic: Negative for swollen nodes, abnormal bleeding, and unusual bruising. 13:19 : Positive for Flores catheter in place - appears to be normal. Exam: 13:19 Constitutional: This is a well developed, well nourished patient who is awake, alert, kdr and in no acute distress. Head/Face: Normocephalic, atraumatic. Eyes: Pupils equal round and reactive to light, extra-ocular motions intact. Lids and lashes normal. Conjunctiva and sclera are non-icteric and not injected. Cornea within normal limits. Periorbital areas with no swelling, redness, or edema. 13:19 : a flores is noted. Vital Signs: 08:50 BP 116 / 71; Pulse 82; Resp 16; Temp 97.1; Pulse Ox 99% ; Weight 65.77 kg; Height 5 ft. hb 2 in. (157.48 cm); Pain 0/10; 10:00 BP 123 / 71; Pulse 68; Resp 16; Pulse Ox 99% ; bp 11:21 BP 112 / 70; Pulse 80; Resp 16; Pulse Ox 97% ; bp 12:38 BP 107 / 70; Pulse 74; Resp 16; Temp 97.5; Pulse Ox 99% ; bp 08:50 Body Mass Index 26.52 (65.77 kg, 157.48 cm) hb MDM: 11:11 Patient medically screened. kdr 13:19 Data reviewed: vital signs, nurses notes. Counseling: I had a detailed discussion with kdr the patient and/or guardian regarding: the historical points, exam findings, and any diagnostic results supporting the discharge/admit diagnosis, the need for outpatient follow up. ED course: The Flores was taken out without problem and though he was unable to void - had no urge in the ED - he was instructed to come back if he continues to not have urine output while having an urge to urinate. 04/08 09:05 Order name: [facility]. Order: D/c flores; Complete Time: 09:09 kdr Administered Medications: No medications were administered Disposition: 04/08/19 11:11 Discharged to Home. Impression: Flores cath removal. - Condition is Fair. - Discharge Instructions: Acute Urinary Retention, Male, [id number]. - Medication Reconciliation Form, Thank You Letter form. - Follow up: Private Physician; When: 2 - 3 days; Reason: If symptoms return, Further diagnostic work-up, Recheck today's complaints, Continuance of care, Re-evaluation by your physician. - Problem is an ongoing problem. - Symptoms have improved. Signatures: Raji You MD MD kdr Radha Bautista, RN RN Julio Dye, RN RN bp Corrections: (The following items were deleted from the chart) 12:39 11:11 04/08/2019 11:11 Discharged to Home. Impression: Flores cath removal. Condition is bp Fair. Forms are Medication Reconciliation Form, Thank You Letter, Antibiotic Education, Prescription Opioid Use. Follow up: Private Physician; When: 2 - 3 days; Reason: If symptoms return, Further diagnostic work-up, Recheck today's complaints, Continuance of care, Re-evaluation by your physician. Problem is an ongoing problem. Symptoms have improved. kdr
--- NOTE | 2019-04-08 11:12 | ER ---
Nurse's Notes [facility] Name: Nesha Youssef Age: 63 yrs Sex: Male : 1955 Arrival Date: 04/08/2019 Time: 08:34 Bed 15 Private MD: Diagnosis: Flores cath removal Presentation: 04/08 08:49 Presenting complaint: Needs flores catheter removed. Transition of care: patient was not hb received from another setting of care. Onset of symptoms was April 08, 2019. Risk Assessment: Do you want to hurt yourself or someone else? Patient reports no desire to harm self or others. Initial Sepsis Screen: Does the patient meet any 2 criteria? No. Patient's initial sepsis screen is negative. Does the patient have a suspected source of infection? No. Patient's initial sepsis screen is negative. Care prior to arrival: None. 08:49 Method Of Arrival: Ambulatory hb 08:49 Acuity: MARIE 4 hb Triage Assessment: 08:50 General: Appears in no apparent distress. comfortable, Behavior is calm, cooperative, bp appropriate for age. Pain: Complains of pain in pelvis. EENT: No deficits noted. Neuro: No deficits noted. Cardiovascular: No deficits noted. Respiratory: No deficits noted. GI: No signs and/or symptoms were reported involving the gastrointestinal system. : Flores in place. Derm: No deficits noted. Musculoskeletal: No deficits noted. Historical: - Allergies: 08:50 NKA; hb - Immunization history:: Adult Immunizations up to date. - Social history:: Smoking status: Patient/guardian denies using tobacco. - Ebola Screening: : No symptoms or risks identified at this time. Screenin:50 Abuse screen: Denies threats or abuse. Denies injuries from another. Nutritional bp screening: No deficits noted. Tuberculosis screening: No symptoms or risk factors identified. Fall Risk None identified. Assessment: 08:50 General: SEE TRIAGE NOTE. bp 09:10 Reassessment: Patient is alert, oriented x 3, equal unlabored respirations, skin aa5 warm/dry/pink. Pt given urinal and notified of need to void before d/c home, pt verbalized understanding. . 10:00 Reassessment: PT DRINKING WATER, NO URINE OUTPUT AT THIS TIME. bp 11:18 Reassessment: D/C ON HOLD PENDING URINATION. bp 12:38 Reassessment: PT D/C HOME AMBULATORY WITH FAMILY, DX WITH URINARY RETENTION. bp Vital Signs: 08:50 BP 116 / 71; Pulse 82; Resp 16; Temp 97.1; Pulse Ox 99% ; Weight 65.77 kg; Height 5 ft. hb 2 in. (157.48 cm); Pain 0/10; 10:00 BP 123 / 71; Pulse 68; Resp 16; Pulse Ox 99% ; bp 11:21 BP 112 / 70; Pulse 80; Resp 16; Pulse Ox 97% ; bp 12:38 BP 107 / 70; Pulse 74; Resp 16; Temp 97.5; Pulse Ox 99% ; bp 08:50 Body Mass Index 26.52 (65.77 kg, 157.48 cm) hb ED Course: 08:34 Patient arrived in ED. as 08:48 Raji You MD is Attending Physician. kdr 08:50 Triage completed. hb 08:50 Arm band placed on. hb 08:50 Patient has correct armband on for positive identification. Bed in low position. Call bp light in reach. Side rails up X2. Adult w/ patient. 08:57 Julio Dye, RN is Primary Nurse. bp 09:07 Patient tolerated well. Flores cath removed intact, balloon deflated. aa5 12:38 No provider procedures requiring assistance completed. Patient did not have IV access bp during this emergency room visit. Administered Medications: No medications were administered Outcome: 11:11 Discharge ordered by . kdr 12:38 Discharged to home ambulatory, with family. bp 12:38 Condition: stable 12:38 Discharge instructions given to patient, Instructed on discharge instructions, follow up and referral plans. Demonstrated understanding of instructions, follow-up care. 12:39 Patient left the ED. bp Signatures: Raji You MD MD kdr Martinez, Amelia as Calderon, Audri, RN RN aa5 Radha Bautista, RN RN hb Julio Dye, SIMON RN bp
[2019-04-08 12:49] VITALS: BP 107/70; TEMP 97.5; O2SAT 99
== END 2019-04-08 12:39 | disposition home or self-care (01) ==
LOC: ER 08:32
DX: Z46.6 Encounter for fitting and adjustment of urinary device (principal)
CPT/HCPCS: 99281